=== PATIENT | male | born 1935 | race Caucasian/White ===

== ENCOUNTER 2019-02-02 16:04 | Emergency (ER) | payer MEDICARE, BC ==
[~2019-02-02] VITALS: Ht 177.8 cm; Wt 73.5 kg
[~2019-02-02 16:04] MED LIST: ASPI81CH PO; ATEN25 PO; Azopt10 ML; CEPH500 PO; CHOL10002; Carbidopa-Levo1 EACH PO; Coumadin4 MG PO; FISH OIL OMEGA1 EAC2 PO; HYDCHL25 PO; IRON150C PO; LANOXIN125 MCG PO; LEVSOD50 PO; METF500 PO; SIMBRINZA 1%-0.28 ML BOTHEYES; SIMV40 PO; TRAM50 PO; UBID10; VITAMIN C500 MG PO; WARF5 PO; Xalatan2.5 ML BOTHEYES
[2019-02-02 16:40] LABS: BASOPHILS ABSOLUTE AUTO 0.02 K/mm3 (0.00-0.23); BASOPHILS PERCENT AUTO 0 % (0-2); EOSINOPHILS ABSOLUTE AUTO 0.05 K/mm3 (0.00-0.68); EOSINOPHILS PERCENT AUTO 0 % (0-6); Hematocrit 40.7 % (37.0-53.0); Hemoglobin 12.9 g/dL (13.5-17.5); IMMATURE GRAN PERCENT AUTO 1 % (0-1); LYMPHOCYTES ABSOLUTE AUTO 0.61 K/mm3 (0.84-5.20); LYMPHOCYTES PERCENT AUTO 5 % (21-46); MONOCYTES ABSOLUTE AUTO 0.69 K/mm3 (0.16-1.47); MONOCYTES PERCENT AUTO 5 % (4-13); Mean Corpuscular HGB 30.4 pg (26.0-34.0); Mean Corpuscular HGB Conc 31.7 g/dL (31.5-36.5); Mean Corpuscular Volume 96 fL (80-100); Mean Platelet Volume 10.6 fL (9.1-12.4); NEUTROPHILS ABSOLUTE AUTO 11.63 K/mm3 (1.96-9.15); NEUTROPHILS PERCENT AUTO 89 % (41-73); Platelet Count 210 K/mm3 (150-400); RDW Coefficient Variation 13.8 % (11.7-14.2); Red Blood Cell Count 4.24 M/mm3 (4.30-5.90)
[2019-02-02] MEDS ORDERED: LANOXIN125 MCG (16:42)
[2019-02-02 17:01] LABS: Albumin, Blood 4.2 g/dL (3.4-5.0); Bilirubin, Total 1.1 mg/dL (0.1-1.0); Bun/Creatinine Ratio 17.7 (12.0-20.0); Calcium, Blood 9.5 mg/dL (8.5-10.1); Creatinine, Blood 1.64 mg/dL (0.60-1.20); Potassium, Blood 3.4 mmol/L (3.5-5.5); Total Protein, Blood 8.2 g/dL (6.4-8.2)
[2019-02-02 17:19] LABS: International Normalized Ratio 2.17; Prothrombin Time Results 21.4 Sec (9.7-11.5)
[2019-02-02 17:25] LABS: Digoxin (Lanoxin) 0.69 ug/mL (0.80-2.00)
[2019-02-02 18:05] LABS: Source, Urine Clean Catch
[2019-02-02 18:17] LABS: Bilirubin, Urine Neg (Neg); Blood, Urine 1+ (Neg); Glucose Qualitative, Urine Neg (Neg); Ketones, Urine Neg (Neg); Leukocyte Esterase, Urine Neg (Neg); Nitrite, Urine Neg (Neg); Protein, Urine 2+ (Neg); Urobilinogen, Urine NORM (Normal)
[2019-02-02 18:22] LABS: Appearance, Urine Clear (Clear); Color, Urine Yellow (P-Yellow)
[2019-02-02 18:26] LABS: Bacteria Few /hpf; Red Blood Cells, Urine 0-2 /hpf (0-2); Squamous Epithelial Cells Rare /hpf (Few)
[2019-02-02 18:27] LABS: White Blood Cells, Urine 0-2 /hpf (0-5)
[2019-02-02] MEDS ORDERED: POTA20PAC PO (20:11)
== END 2019-02-02 20:37 | disposition home or self-care (01) ==
LOC: ER 16:04
PROVIDERS: Emergency Medicine; Physician Assistant
DX: N17.9 Acute kidney failure, unspecified (principal); E87.6 Hypokalemia; N28.9 Disorder of kidney and ureter, unspecified; I10 Essential (primary) hypertension; E11.9 Type 2 diabetes mellitus without complications; I48.91 Unspecified atrial fibrillation; G20 Parkinson's disease; Z85.038 Personal history of other malignant neoplasm of large intestine; Z79.899 Other long term (current) drug therapy; Z79.01 Long term (current) use of anticoagulants; Z79.84 Long term (current) use of oral hypoglycemic drugs; Z79.82 Long term (current) use of aspirin
CPT/HCPCS: 36415; 71046; 80053; 80162; 81001; 83690; 85025; 85610; 96361; 96374; 99283-25; J2405; J7030